=== PATIENT | female | born 1960 | race Asian ===

== ENCOUNTER 2022-09-10 10:17 | Emergency (ER) | payer MEDICAID, OTHER ==
[~2022-09-10] VITALS: Ht 157.5 cm; Wt 79.5 kg
[2022-09-10] MEDS ORDERED: FAMO20 PO (10:22)
[2022-09-10] MEDS ORDERED: CHOL25TA4 PO (10:22)
[2022-09-10] MEDS ORDERED: AMLO2.5T96 PO (10:22)
[2022-09-10] MEDS ORDERED: LISI-894 PO (10:22)
[2022-09-10] MEDS ORDERED: ACET-3385 PO (10:22)
[2022-09-10] MEDS ORDERED: MECL-134 PO (10:22)
[2022-09-10 14:16] VITALS: BP 151/88
[2022-09-10] MEDS ORDERED: LIDOCAINE 2%/EPI 1:200,000/PF 10 ML VIAL SQ ONE (14:30)
== END 2022-09-10 15:14 | disposition home or self-care (01) ==
LOC: EMS 10:22
DX: K11.6 Mucocele of salivary gland (principal); E78.00 Pure hypercholesterolemia, unspecified; I10 Essential (primary) hypertension
CPT/HCPCS: 96372; 99283